=== PATIENT | female | born 1990 | race Caucasian/White ===

== ENCOUNTER → 2016-08-14 | Outpatient (CLI) | payer BC ==
--- NOTE | 2016-08-17 14:19 | US ---
EXAM DATE: 08/14/16 PATIENT'S AGE: 26 Patient: KEYONNA AGUILERA Facility: [place], [place] Site . Site : 1990 Study: US OB Pelvis [id number]/13/2017 2:56:16 PM Ordering Physician: Brittany Camara Final Report: Indication: anatomy scan. Technique: Ob ultrasound. Submitted static images are interpreted without the benefit of real-time scanning. Comparison: No previous. Findings: This examination was technically difficult. There is a single living intrauterine fetus in breech presentation. The placenta is posterior. No placenta previa is demonstrated. Amniotic fluid appears normal with an amniotic fluid index 17.6 cm. [facility] notes that activity was observed. The heart rate is not documented on submitted images. Estimated weight is 334 g. This corresponds with the 78 percentile according to [facility]. Biparietal diameter 4.6 cm, 64.8 percent, 19 weeks 6 days. Head circumference 17.1 cm, 47.6 percent, 19 weeks 5 days. Abdominal circumference 13.95 cm, 37.4 percent, 19 weeks 3 days. Femur length 3.5 cm, 90.3 percent, 21 weeks 1 day. Cisterna magna measures 0.4 cm AP dimension. Femur length/biparietal diameter is 76.65, out of range. Femur length/head circumference 20.66 (16.5 - 19.16). Femur length/abdominal circumference 25.3 (20.00-24.00). A 3 vessel umbilical cord is seen. The facial views are not adequately visualized. The stomach and bilateral kidneys appear normal. diaphragm is not well visualized. The cord insertion and placenta cord insertion appear normal. The urinary bladder is not well visualized. Four extremities are visualized. The brain lateral ventricles and posterior fossa appeared normal. Longitudinal images of the spine appear normal. There are limited transverse images of the spine. Impression: Single living intrauterine fetus. The [facility] reports that the fetus was visualized to be active; the heart rate was not documented. No anatomy abnormalities are visualized but there was limited visualization of multiple structures. This exam was technically difficult. A follow-up ultrasound is encouraged to reassess inadequately visualized anatomy structures. Dictated by Oksana Acosta MD @ Aug 17 2016 12:55PM (Electronic Signature) Report Signed by Proxy and Original Signed Document filed in the Medical Record. [facility]
== END ==
LOC: MW.US 13:33
PROVIDERS: ATTEND Obstetrics & Gynecology
DX: Z36 Encounter for antenatal screening of mother (principal); O24.919 Unspecified diabetes mellitus in pregnancy, unspecified trimester
CPT/HCPCS: 76805; 76805-26; 81003

== ENCOUNTER → 2016-09-11 | Outpatient (CLI) | payer BC ==
--- NOTE | 2016-09-12 14:04 | US ---
EXAM DATE: 09/11/16 PATIENT'S AGE: 26 Patient: KEYONNA AGUILERA Facility: [place], [place] Site . Site : 1990 Study: US OB Pelvis [id number]/10/2017 4:19:40 PM Ordering Physician: Brittany Camara Final Report: CLINICAL HISTORY: Followup ultrasound check spine facial views urinary bladder. TECHNIQUE: Real time baig scale imaging of the fetus was performed as well as color Doppler and spectral Doppler analysis of the umbilical artery. FINDINGS: Sonographic imaging demonstrates a single living intrauterine gestation. Fetus demonstrates a regular cardiac rate of 160 beats per minute. Fetus has a cephalic orientation . The placenta lies fundal without evidence of placenta previa. Amniotic fluid volume appears normal. The composite ultrasound gestational age is calculated at 24 weeks 2 days. The estimated weight is 658 which lies at the 45th percentile. The biometric indices all lie within normal range. biometry: BPD 6 cm 24 weeks 4 day HC 21.9 cm 24 weeks 0 days AC 19.5 cm 24 weeks 2 days FL 4.3 cm 24 weeks 0 days HC/AC 1.1 Limited anatomic survey demonstrates normal appearance of the spine , face con urinary bladder. Heart outflow tract, kidneys appear normal. IMPRESSION: 1. Single live intrauterine gestation with composite gestational age by today`s ultrasound of 24 weeks 2 days with EARLE of 12/10/2016. 2. Limited anatomic survey demonstrates no gross anomalies. Dictated by Ila Benoit MD @ Sep 12 2016 10:09AM (Electronic Signature) Report Signed by Proxy and Original Signed Document filed in the Medical Record. MTDD
== END ==
LOC: MW.CHOBGYN 15:41
PROVIDERS: ATTEND Obstetrics & Gynecology
DX: O28.3 Abnormal ultrasonic finding on antenatal screening of mother (principal); Z3A.24 24 weeks gestation of pregnancy
CPT/HCPCS: 76815-26; 76816

== ENCOUNTER → 2016-09-19 | Outpatient (CLI) | payer BC | LOC: MW.CHOBGYN 07:54 | PROVIDERS: ATTEND Obstetrics & Gynecology | DX: O24.919 Unspecified diabetes mellitus in pregnancy, unspecified trimester (principal) | CPT/HCPCS: 36415; 81003; 85027 ==

== ENCOUNTER → 2016-10-23 | Outpatient (CLI) | payer BC | LOC: MW.US 13:48 | PROVIDERS: ATTEND Obstetrics & Gynecology | DX: O24.913 Unspecified diabetes mellitus in pregnancy, third trimester (principal) | CPT/HCPCS: 76815; 76815-26 ==